=== PATIENT | female | born 1985 | race Caucasian/White ===

== ENCOUNTER 2019-07-13 02:18 | Emergency (ER) | payer SELFPAY ==
[~2019-07-13] VITALS: Ht 152.4 cm; Wt 90.0 kg
--- NOTE | 2019-07-13 02:48 | NUR ---
PT TO ED WITH C/O THAT PT "DRANK TOO MUCH" REPORTS HAVING 2-3 SHOTS OF TEQUILA AND A FEW OTHER "DRINKS". PT REPORTS MAKING HERSELF THROW UP, CURRENT NAUSEA, AND HEADACHE. REPORTS BEING UNABLE TO DRINK ANYTHING BY MOUTH. PT ASKING FOR A CUP OF WATER AT THIS TIME. THIS RN INITIATED IV INSERTION, PT STATES "IM GETTING DIZZY I WANT WATER FIRST, TAKE IT OUT". ALL MONITORING APPLIED, CALL LIGHT WITHIN REACH, ALL SAFETY MEASURES IN PLACE.
[2019-07-13] MEDS ORDERED: SODIUM CHLORIDE 0.9% 1,000ML IVBOLUS ONE (03:00)
[2019-07-13] MEDS ORDERED: ONDANSETRON 2MG/ML, 2ML IVPush ONE (03:00)
[2019-07-13] MEDS ORDERED: SODIUM CHLORIDE FLUSH 10ML SYR IVF ONE (03:00)
[2019-07-13] MEDS ORDERED: ONDANSETRON ODT 8 MG ONE (03:04)
[2019-07-13] MEDS ORDERED: IBUPROFEN 600 MG TABLET ONE (03:13)
[2019-07-13] MEDS ORDERED: IBUPROFEN 200 MG TABLET PO ONE (03:30)
[2019-07-13] MEDS ORDERED: ONDANSETRON ODT 4 MG PO ONE (03:30)
== END 2019-07-13 03:27 | disposition home or self-care (01) ==
LOC: MERGE 03:12 → ED 03:12
DX: F10.120 Alcohol abuse with intoxication, uncomplicated (principal); R51 Headache; Y90.0 Blood alcohol level of less than 20 mg/100 ml
CPT/HCPCS: 99283; Q0162